=== PATIENT | female | born 2000 | race Caucasian/White ===

== ENCOUNTER 2023-01-18 03:13 | Emergency (ER) | payer OTHER ==
[~2023-01-18] VITALS: Ht 167.6 cm; Wt 52.2 kg
[2023-01-18 03:30] VITALS: TEMP 98.9
[2023-01-18 05:45] VITALS: BP 124/72; O2SAT 100
== END 2023-01-18 05:46 | disposition home or self-care (01) ==
LOC: ER 03:21
DX: F10.129 Alcohol abuse with intoxication, unspecified (principal); Y90.7 Blood alcohol level of 200-239 mg/100 ml
CPT/HCPCS: 36415; G0480